=== PATIENT | female | born 2000 | race Caucasian/White ===

== ENCOUNTER 2025-01-04 07:04 | Emergency (ER) | payer BC ==
[2025-01-04 08:36] LABS: TSH 0.422 uIU/mL (0.358-3.74)
== END 2025-01-04 09:35 | disposition home or self-care (01) ==
LOC: JD.ED 07:04
DX: L42 Pityriasis rosea (principal); E03.9 Hypothyroidism, unspecified; Z79.899 Other long term (current) drug therapy; Z79.890 Hormone replacement therapy
CPT/HCPCS: 36415; 84443; 84481; 99283